=== PATIENT | male | born 1965 | race Caucasian/White ===

== ENCOUNTER 2017-10-29 20:39 | Emergency (ER) | payer OTHER, SELFPAY ==
[2017-10-29 20:40] VITALS: BP 135/86; PULSE 74; RESP 18; TEMP 36.6; O2SAT 93; BMI 26.4
[2017-10-29 20:46] VITALS: O2SAT 92
[2017-10-29 21:34] VITALS: BP 124/86; PULSE 85; RESP 20; O2SAT 93
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
[2017-10-29 21:59] VITALS: BP 128/80; PULSE 79; RESP 18; O2SAT 94
--- NOTE | 2017-10-29 22:17 | EKG12_ITS ---
Test Reason : CP Blood Pressure : / mmHG Vent. Rate : 097 BPM Atrial Rate : 097 BPM P-R Int : 176 ms QRS Dur : 076 ms QT Int : 322 ms P-R-T Axes : 065 -67 071 degrees QTc Int : 408 ms Normal sinus rhythm Left axis deviation Abnormal ECG Confirmed by JOHN JULIEN, THOMAS ([id number]), newspaper editor GITA GASCA ([id number]) on 10/31/2017 1:47:19 PM Referred By: ABEL Confirmed By:THOMAS LOPEZ MD
== END 2017-10-29 21:59 | disposition home or self-care (01) ==
PROVIDERS: Emergency Provider Emergency Medicine; Family Provider Family Medicine; PCP Family Medicine
DX: R55 Syncope and collapse (principal); M54.2 Cervicalgia; R06.00 Dyspnea, unspecified
CPT/HCPCS: 36415; 93005; 99285; J7030; A4216

== ENCOUNTER 2019-08-22 21:16 | Emergency (ER) | payer BC, SELFPAY ==
[2019-08-22 21:17] VITALS: BP 127/82; PULSE 92; RESP 16; TEMP 37.8; O2SAT 96; BMI 16.5
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
[2019-08-22 21:50] VITALS: RESP 16
[2019-08-22] MEDS: Diphth,Pertuss(Acell),Tet Vac 0.5 ML Vial IM (22:27)
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
== END 2019-08-22 23:13 | disposition home or self-care (01) ==
PROVIDERS: Emergency Provider Emergency Medicine; Family Provider Family Medicine; PCP Family Medicine
DX: S83.282A Other tear of lateral meniscus, current injury, left knee, initial encounter (principal); V19.9XXA Pedal cyclist (driver) (passenger) injured in unspecified traffic accident, initial encounter; Y93.55 Activity, bike riding; Y92.9 Unspecified place or not applicable; F17.200 Nicotine dependence, unspecified, uncomplicated
CPT/HCPCS: 73564; 90471; 90715; 99282

== ENCOUNTER 2021-02-08 23:12 | Emergency (ER) | payer BC, SELFPAY ==
[2019-08-27 09:12] VITALS: BMI 16.5
[2021-02-08 23:16] VITALS: BP 149/95; PULSE 88; RESP 18; TEMP 36.7; O2SAT 91; BMI 25.3
[2021-02-08 23:20] VITALS: BP 149/95; PULSE 88; RESP 18; TEMP 36.7; O2SAT 91
[2021-02-09 00:15] VITALS: BP 118/77; PULSE 71; RESP 20; O2SAT 92
--- NOTE | 2021-02-09 01:20 | EKG12_ITS ---
Test Reason : DYSRHYTHMIA Blood Pressure : / mmHG Vent. Rate : 073 BPM Atrial Rate : 073 BPM P-R Int : 174 ms QRS Dur : 088 ms QT Int : 364 ms P-R-T Axes : 071 -68 071 degrees QTc Int : 401 ms Normal sinus rhythm Left axis deviation Inferior OR, age undetermined, cannot be excluded Abnormal ECG Confirmed by JOHN JULIEN, THOMAS ([id number]), proposal editor [employer] [place] ([id number]) on 02/10/2021 12:32:58 PM Referred By: JAX Confirmed By:THOMAS LOPEZ MD
--- NOTE | 2021-02-09 01:20 | EX.ED.DYSGE1 ---
HPI History of Present Illness Chief Complaint: Weakness Narrative Narrative: Patient presents with a hot feeling and weakness that lasted for short period of time when he was wrestling around with his significant other in bed. He has had this happen remotely 1 time with a vasovagal episode several years ago. He has never had this again. Denies any symptoms currently as he feels normal. Denies any chest pain or shortness of breath. No history of KS in the past. It went away on its own. PFSH PFSH Home Medications NK 10/29/17 [History Last Taken Unknown] Allergy/AdvReac Type Severity Reaction Status Date / Time No Known Allergies Allergy Verified 08/27/19 09:12 Surgical History H/O hernia repair Social History Smoking Status: Current some day smoker tobacco type: cigarettes ROS ROS ED ROS Narrative ROS General: Denies fever, chills, sweats Eyes: Denies visual changes, blurred vision, double vision ENT: Denies ear pain, rhinorrhea, sore throat Cardiovascular: Denies chest pain, palpitations, heart racing Respiratory: Denies dyspnea, cough, sputum, dyspnea on exertion, orthopnea,PND GI: Denies abdominal pain, nausea, vomiting, diarrhea, constipation, melena : Denies dysuria, hematuria, frequency Musculoskeletal: Denies myalgias, arthralgias, neck pain, back pain Skin: Denies rash, abscess, abrasions Neuro: Denies headache, weakness, paresthesia Psych: Denies depression, anxiety Endo: Denies polyuria, polydipsia, polyphagia Heme: Denies easy bruising, easy bleeding, lymphadenopathy Allergy: Denies hives, swelling EXAM Physical Exam Narrative Exam Narrative: Vital signs reviewed General: Well-nourished well-developed Head: Normocephalic atraumatic Eyes: Pupils equal round and reactive to light extraocular movements intact ENT: TMs clear no hemotympanum no trauma Neck: Nontender full range of motion Cardiovascular: Regular rate rhythm no murmurs normal S1-S2 Respiratory: No distress clear to auscultation bilaterally chest nontender Abdomen: Soft nontender nondistended normal bowel sounds no masses Back: Nontender no CVA tenderness Extremities: Nontender active range of motion ?4 extremities no trauma Skin: Normal color no trauma Neuro alert oriented cranial nerves II through XII intact normal strength sensation reflexes Const Vital Signs: 02/08/21 23:16 02/08/21 23:20 02/08/21 23:23 Temperature 98.0 F 98.0 F Temperature Source Temporal Temporal Pulse Rate 88 88 Respiratory Rate 18 18 Respiratory Effort Normal Non-Labored Respiratory Pattern Normal Blood Pressure 149/95 H 149/95 H Blood Pressure Mean 113 113 Pulse Ox 91 91 Oxygen Delivery Method Room Air Room Air 02/09/21 00:15 Temperature Temperature Source Pulse Rate 71 Respiratory Rate 20 H Respiratory Effort Respiratory Pattern Blood Pressure 118/77 Blood Pressure Mean 90 Pulse Ox 92 Oxygen Delivery Method Room Air MDM MDM MDM Narrative Medical decision making narrative: EKG and lab work obtained. EKG shows sinus rhythm at a rate of 73 with no acute ischemia or arrhythmia. Lab work including troponin is negative. CBC and BMP show no acute major abnormalities. Hemoglobin 16.6. On reevaluation he remained stable. I suspect he did have a recurrent vasovagal episode while wrestling in the bed. Will be discharged to follow-up. I do not feel he needs admitted. Lab Data Labs: Laboratory Results - last 24 hr 02/08/21 02/08/21 23:30 23:30 WBC 6.0 RBC 5.33 Hgb 16.6 H Hct 49.5 MCV 92.9 MCH 31.1 MCHC 33.5 RDW Std Deviation 44.1 H RDW Coeff of [place] 12.9 Plt Count 186 MPV 9.8 Immature Gran % (Auto) 0.300 Neut % (Auto) 68.7 Lymph % (Auto) 19.7 [place] % (Auto) 7.3 Eos % (Auto) 3.2 Baso % (Auto) 0.8 Absolute Neuts (auto) 4.1 Absolute Lymphs (auto) 1.19 Nucleated RBC % 0 Sodium 140 Potassium 3.8 Chloride 106 Carbon Dioxide 30.0 Anion Gap 4 L BUN 18 Creatinine 0.90 Estim Creat Clear Calc 83.69 Est GFR (MDRD) Af Amer 112 Est GFR (MDRD) Non-Af 92 BUN/Creatinine Ratio 19.9 Glucose 107 H Calcium 9.0 Troponin I < 0.015 Discharge Plan Triage Chief Complaint: Weakness ED Provider: Shundry,Michael Dx/Rx/DC Orders Clinical Impression: Vaso-vagal reaction Instructions: ED Fainting, Vagal Reaction Prescriptions: No Action NK RF: 0 Primary Care Provider: Cristian Mancini Referrals: Cristian Mancini DO [Primary Care Provider] - Disposition Disposition: Home, self care
[2021-02-09 01:25] LABS: Absolute Lymphocyte Count 1.19 X10^3/uL (0.83-4.51); Absolute Neutrophil Count 4.1 X10^3/uL (2.0-7.7); Basophil# 0.05 X10^3/uL; Basophil% 0.8 % (0-1); Eosinophil# 0.19 X10^3/uL; Eosinophils% 3.2 % (0-5); Hematocrit 49.5 % (40-54); Hemoglobin 16.6 g/dL (13.0-16.5); Lymphocyte # 1.19 X10^3/ul (0.83-4.51); Lymphocyte % 19.7 % (19-41); Mean Corp Hgb Conc 33.5 g/dL (32-36); Mean Corpuscular Hgb 31.1 pg (27.0-32.0); Mean Corpuscular Volume 92.9 fL (80-94); Mean Platelet Vol. 9.8 fl (6.2-12.0); Monocyte# 0.44 X10^3/uL; Monocyte% 7.3 % (0-10); NRBC Flagged by Analyzer 0 % (0-5); Neutrophil # 4.14 X10^3/uL (2.7-7.7); Neutrophil % 68.7 % (47-70); Platelet Count 186 K/mm3 (150-450); RBC Distribution Width CV 12.9 % (11.6-14.6); RBC Distribution Width SD 44.1 fl (35.1-43.9); Red Blood Count 5.33 M/mm3 (4.6-6.2)
[2021-02-09 01:40] LABS: Anion Gap 4 (5-15); BUN 18 mg/dL (7-18); BUN/Creat Ratio 19.9 RATIO (10-20); Chloride 106 mmol/L (98-107); EST Glomerular Filtration Rate 92 mL/min (>60); Est Glom Filt Rate - Afr Amer 112 mL/min (>60); Estimated Creatinine Clearance 83.69 ml/min; Glucose 107 mg/dL (74-106); Potassium 3.8 mmol/L (3.5-5.1); Sodium Level 140 mmol/L (136-145)
[2021-02-09 02:07] VITALS: BP 121/87; PULSE 78; RESP 16; O2SAT 97
== END 2021-02-09 02:40 | disposition home or self-care (01) ==
PROVIDERS: Emergency Provider Emergency Medicine; PCP Family Medicine
DX: R55 Syncope and collapse (principal); F17.210 Nicotine dependence, cigarettes, uncomplicated
CPT/HCPCS: 80048; 84484; 85025; 93005; 99285; J7030; A4216